=== PATIENT | male | born 1955 | race Caucasian/White ===

== ENCOUNTER 2019-08-08 16:12 | Outpatient (REF) | payer MEDICARE, BC, SELFPAY ==
[2019-08-12 14:38] LABS: IgA 119 mg/dL (85-499); Interpretation SEE COMMENTS; Tissue Transglutaminase IgA <1.2 U/mL (<4.0)
[2019-08-12 14:50] LABS: PSA, Screening 0.4 ng/ml (0-4.5)
== END 2019-08-08 16:32 ==
LOC: NCHCN 16:12
PROVIDERS: PCP Internal Medicine; Visit Provider Internal Medicine
DX: E78.5 Hyperlipidemia, unspecified (principal); K58.9 Irritable bowel syndrome, unspecified; E66.9 Obesity, unspecified; Z12.5 Encounter for screening for malignant neoplasm of prostate
CPT/HCPCS: 82784; 83516; 84153

== ENCOUNTER 2019-10-17 01:41 | Emergency (ER) | payer BC, MEDICARE, SELFPAY ==
[2019-10-17 01:48] VITALS: BP 155/80; PULSE 62; RESP 16; TEMP 36.7; O2SAT 97
--- NOTE | 2019-10-17 01:53 | W.ED.GENAD ---
Discharge Plan Disposition Patient Disposition: HOME Condition: Good Discharge Details Chief Complaint: Urinary Clinical Impression: Right distal ureteral calculus, Right renal mass Primary Care Provider: Tavo Henderson ED Provider: Rufus Mckenna Home Meds and New Rx's Prescriptions: New Hydrocodone/Apap 5/325, 4 Tab [[place] 5/325, 4 Tabs/Btl] 1 tab PO BID-QID PRN (Reason: pain) Qty: 4 RF: 0 Continued simvastatin 10 MG tablet 10 mg PO HS RF: 0 chlorthalidone 25 mg Tablet 25 mg PO DAILY RF: 0 Probiotic 15 billion cell Capsule 15 cap PO BID RF: 0 Discharge Instructions Instructions: Hydrocodone/Acetaminophen (By mouth), Renal Colic (ED) Additional Instructions: You have a 3 mm right distal ureteral stone which should pass on its own. Stay hydrated. Continue ibuprofen. Hydrocodone/acetaminophen for severe pain. Strain your urine so you know when stone has passed. Contact primary care at this morning for follow-up and further evaluation of the right renal mass. Return to ED if you develop fever, vomiting, uncontrolled pain, other concerns or problems. Referrals: Tavo Henderson MD [Primary Care Provider] - Medical Decision Making Patient presenting with what he thinks is kidney stone although he cannot really lateralize his pain. Seems to feel like it may be more on the right than left. Seems uncomfortable but not in distress. Declines further pain meds. IV established by nursing. Fluids started. Will obtain CBC and chemistry as well as urinalysis and sent for CT stone study. Patient laboratory studies are normal. White count is normal. Kidney function normal. Urinalysis completely negative. CT scan shows a 3 mm distal right ureter stone with mild hydronephrosis. Patient also noted to have multiple hepatic cysts and renal cysts which have been present previously. There is a new right renal mass that is suspicious and will need further work-up. Patient reports pain getting worse again. Continues to have no nausea. Will receive [place] 5/325. Will send home with 4 tabs as well. Informed consent signed and State information sheet given. Suspect patient will pass stone without difficulty. Continue ibuprofen. Patient instructed to contact primary care, Dr. Henderson, in the morning to arrange for follow-up and further evaluation of right renal mass. Medical Records Medical records reviewed: Yes I reviewed the patient's medical records. Lab Data Lab results reviewed: Yes I reviewed the patient's lab results. HPI General Mode of arrival: ambulatory. Date/Time Provider Initiated Documentation: 10/17/19 01:51. Limitations to Documentation: no limitations. Information obtained by: patient and RN notes reviewed. HPI Narrative: Patient presents to ED with complaint of lower abdominal/pelvic pain that woke him from sleep. He feels like he needs to have a bowel movement but is unable to. He denies urinary symptoms though he reports this feels like previous kidney stone he had years ago. He does not really have any back pain currently. He noticed some yesterday but cannot describe it. He has no fever. He felt chilled this evening before going to bed. He has no nausea/vomiting. He has had no hematuria. He took ibuprofen prior to coming in and reports that the pain is better though still present. Related Data Home Medications Medication Instructions Recorded Confirmed simvastatin 10 mg PO HS tab-cap 10/24/17 HYDROcodone/APAP 5/325, 4 tab 1 tab PO BID-QID PRN #4 tab 10/17/19 [[place] 5/325, 4 tabs/btl] Probiotic 15 cap PO BID 10/17/19 10/17/19 chlorthalidone 25 mg PO DAILY 10/17/19 10/17/19 Previous Rx's Medication Instructions Recorded HYDROcodone/APAP 5/325, 4 tab 1 tab PO BID-QID PRN #4 tab 10/17/19 [[place] 5/325, 4 tabs/btl] Allergies Allergy/AdvReac Type Severity Reaction Status Date / Time No Known Allergies Allergy Unverified 10/17/19 02:44 General Stated Complaint: Urinary LORRIE: 3 Review of Systems Narrative: As documented in HPI otherwise negative as below. Const: no fever, weakness Resp: no cough, SOB, pleuritic pain CV: no CP, diaphoresis, edema, syncope GI: abdominal pain; no nausea, vomiting, diarrhea Neuro: no headache, numbness, focal weakness, confusion [facility] Medical History GERD (gastroesophageal reflux disease) (Chronic) Hypercholesterolemia (Chronic) Surgical History Repair of inguinal hernia Repair of umbilical hernia Tonsillectomy Social History Smoking/Tobacco Use Status: Never Drug use: Never Do you feel safe at home: Yes Do you feel safe in your relationship?: Yes Exam Narrative Exam Narrative: Vitals: Afebrile. Elevated blood pressure otherwise normal vitals and normal pulse oximetry. Const: WDWN male in NAD. HEENT: NC/AT. Normal facial exam. Eyes: Normal conjunctiva and sclera. Neck: Supple. Trachea midline. Lungs: Normal respiratory effort. GI: Soft. NT/ND. No guarding or rebound. Back: No CVAT. Neuro: A+O x 3. No gross deficits. Skin: Warm and dry. Course Vital Signs Vital signs: Vital Signs Temperature 98.1 F 10/17/19 01:48 Pulse 62 10/17/19 01:48 Respiratory Rate 16 10/17/19 01:48 Blood Pressure 155/80 H 10/17/19 01:48 Pulse Oximetry 97 10/17/19 01:48 Temperature 98.1 F 10/17/19 01:48 Temperature Source Skin 10/17/19 01:48 Pulse 62 10/17/19 01:48 Respiratory Rate 16 10/17/19 01:48 Respiratory Effort 10/17/19 01:48 Blood Pressure 155/80 H 10/17/19 01:48 Blood Pressure Position Sitting 10/17/19 01:48 Pulse Oximetry 97 10/17/19 01:48 Oxygen Delivery Method Room Air 10/17/19 01:48 Oxygen Flow Rate 0 10/17/19 01:48 Pain Level 7 10/17/19 01:48
[2019-10-17] MEDS: Normal Saline 1,000 ML 1000 ML IV (02:06)
[2019-10-17 02:09] LABS: Abs Immature Grans 0.01 k/cumm (0.0-0.09); Absolute Basophil Count 0.03 k/cumm (0.0-0.2); Absolute Eosinophil Count 0.22 k/cumm (0.0-0.7); Absolute Lymphocyte Count 2.44 k/cumm (1.2-3.4); Absolute Monocyte Count 0.64 k/cumm (0.11-0.7); Absolute Neutrophil Count 2.91 k/cumm (1.2-6.7); Basophils % 0.5; Eosinophils % 3.5; HCT 45.9 % (40.0-50.0); HGB 16.2 g/dL (13.5-17.5); Immature Grans % 0.2; Mean Corp. HGB Concentration 35.3 g/dL (32.0-36.0); Mean Corpuscular Hemoglobin 30.7 pg (27.0-33.0); Mean Corpuscular Volume 86.9 fL (80-95); Mean Platelet Volume 9.8 fL (8.0-11.0); Monocytes % 10.2; Neutrophils % 46.6; Platelet Count 248 x1000/uL (130-400); RBC 5.28 m/cumm (4.50-6.00); RBC Distribution Width 12.7 % (11.8-14.1); White Blood Cell Count 6.25 k/cumm (4.4-10.8)
[2019-10-17 02:16] LABS: Anion Gap 7.8 mmol/L (3-11); BUN 17 mg/dL (7-18); CO2 30.2 mmol/L (21.0-32.0); CREATININE 1.04 mg/dL (0.70-1.30); Calcium 9.9 mg/dL (8.5-10.1); Chloride 103 mmol/L (98-107); Glucose 129 mg/dL (74-106); Sodium 141 mmol/L (136-145)
[2019-10-17 02:25] LABS: Bilirubin Negative (Negative); Blood Negative (Negative); Clarity Clear (Clear); Glucose Negative (Negative); Ketones Negative (Negative); Leukocyte Esterase Negative (Negative); Nitrite Negative (Negative); Specific Gravity >= 1.030 (1.005-1.025); Urobilinogen 0.2 EU/dL (Up TO 0.2); pH 5.5 (5-8)
--- NOTE | 2019-10-17 02:32 | DI.CT_ITS ---
EXAM: CT RENAL COLIC WO CLINICAL HISTORY: right abdominal/pelvic pain TECHNIQUE: Imaging Protocol: Axial computed tomography images with coronal and sagittal reformatted images were created and reviewed. CONTRAST MATERIAL: Intravenous: Omnipaque 350 Contrast volume:0 mL contrast route:IV - Oral: No COMPARISON: ABD PELVIS WITH CONTRAST from 02/20/2011 FINDINGS: ABDOMEN: Lung Bases: Normal where visualized. Liver: Normal density. Multiple hepatic cysts. The largest measures 6 centimeters in diameter. Gallbladder and biliary tract: Cholelithiasis. No biliary ductal dilatation. Pancreas: Normal density, no abnormal calcifications or inflammatory process. Spleen: Normal. Kidneys: Normal size, contour and axis. Bilateral nephrolithiasis. There is a 3 millimeter stone at the right ureterovesicular junction causing mild hydronephrosis. There is a 6.5 centimeter mass in t he inferior pole of the right kidney suspicious for renal cell carcinoma. There is a 2.2 centimeter exophytic lesion in the midpole of the left kidney. This may represent a solid mass.This may repre sent a hemorrhagic cyst. Further evaluation is recommended. Adrenal glands: No masses seen. Abdominal Aorta: Abdominal portion non-dilated. Atherosclerosis. PELVIS: Bladder: The bladder is not distended. Bowel: No obstruction or bowel wall thickening. The appendix is normal in size without evidence of ad jacent mesenteric fat stranding or adjacent fluid collection. There is colonic diverticulosis but no evidence of acute diverticulitis. Peritoneal cavity: No ascites, collection or mesenteric inflammatory response. Bones: Within normal limits. Reproductive organs: Within normal limits. IMPRESSION: 1. 3 millimeter calculus at the right ureteral vesicular junction causing mild hydronephrosis. 2. 6.5 centimeter solid mass in the lower pole of the right kidney suspicious for renal cell carcinom a. 3. 2.2 centimeter exophytic hyperdense mass in the midpole of the left kidney. This may represent a hemorrhagic cyst but solid mass cannot be excluded. Further evaluation is recommended. 4. Bilateral nephrolithiasis. DATA REPOSITORY: All CT scans at this facility are submitted to the National Radiology Data Registry (NRDR) Dose Index Registry (DIR) with the [employer] (ACR). RADIATION OPTIMIZATION: All CT scans at this facility use at least one of these dose optimization te chniques: automated exposure control; mA and/or kV adjustment per patient size (includes targeted exa ms where dose is matched to clinical indication); or iterative reconstruction.
--- NOTE | 2019-10-17 02:52 | DI.VRAD_ITS ---
PROCEDURE INFORMATION: Exam: CT Abdomen And Pelvis Without Contrast Exam date and time: 10/17/2019 2:02 AM Age: 64 years old Clinical history: Abdominal pain; Localized; Right; Patient HX: RT sided pain x couple hours, no fever, no nausea/vomiting. TECHNIQUE: Imaging protocol: Computed tomography of the abdomen and pelvis without contrast. Radiation optimization: All CT scans at this facility use at least one of these dose optimization techniques: automated exposure control; mA and/or kV adjustment per patient size (includes targeted exams where dose is matched to clinical indication); or iterative reconstruction. COMPARISON: No relevant prior studies available. FINDINGS: Liver: Hepatic cysts up to 6 cm. Gallbladder and bile ducts: Cholelithiasis. Pancreas: Normal. No ductal dilation. Spleen: Normal. No splenomegaly. Adrenals: Normal. No mass. Kidneys and ureters: Renal cysts up to 3.3 cm. 2.2 cm exophytic lesion of the left kidney that likely indicate hyperdense cyst, recommend followup study. Nonobstructing renal calculi. 3 mm calculus right distal ureter with minimal right hydroureteronephrosis. 6.5 cm right renal mass suspicious for renal cell carcinoma. Stomach and bowel: Colonic diverticulosis. Appendix: No evidence of appendicitis. Intraperitoneal space: Unremarkable. No free air. No significant fluid collection. Vasculature: Unremarkable. No abdominal aortic aneurysm. Lymph nodes: Unremarkable. No enlarged lymph nodes. Bladder: Unremarkable as visualized. Reproductive: Unremarkable as visualized. Bones/joints: Unremarkable. No acute fracture. Soft tissues: Unremarkable. IMPRESSION: 1. 3 mm calculus right distal ureter with minimal right hydroureteronephrosis. 2. 6.5 cm right renal mass suspicious for renal cell carcinoma. Dictated and Authenticated by: Rafael Perez MD. Ordering:FOSTER Hooper MD
[2019-10-17 02:57] LABS: ALT 47 U/L (16-63); AST 30 U/L (15-37); Albumin 4.5 g/dL (3.4-5.0); Alkaline Phosphatase 88 U/L (46-116); Bilirubin, Direct 0.09 mg/dL (0.00-0.20); Bilirubin, Total 0.5 mg/dL (0.2-1.0); Lipase 172 U/L (73-393); Total Protein 8.2 g/dL (6.4-8.2)
[2019-10-17] MEDS: HYDROcodone 5/Acetaminophen 325 TAB PO (03:12)
--- NOTE | 2019-10-17 03:16 | NUR.NOTE ---
Nursing Note:Vicodin home pack to patient and spouse.
[2019-10-17 03:28] VITALS: BP 146/88; PULSE 74; RESP 16; O2SAT 100
== END 2019-10-17 03:45 | disposition home or self-care (01) ==
PROVIDERS: Emergency Provider Emergency Medicine; PCP Internal Medicine
DX: N13.2 Hydronephrosis with renal and ureteral calculous obstruction (principal); R93.421 Abnormal radiologic findings on diagnostic imaging of right kidney; R93.422 Abnormal radiologic findings on diagnostic imaging of left kidney; Z87.442 Personal history of urinary calculi
CPT/HCPCS: 36415; 80048; 80076; 83690; 96360; 99284; 74176; 81003; 85025

== ENCOUNTER 2019-10-17 15:56 | Outpatient (REF) | payer BC, MEDICARE, SELFPAY ==
[2019-10-25 22:50] LABS: Source: Passed Stone
== END 2019-10-17 16:16 ==
LOC: LBN 15:56
PROVIDERS: PCP Internal Medicine; Visit Provider Internal Medicine
DX: N23 Unspecified renal colic (principal)
CPT/HCPCS: 82365

== ENCOUNTER 2019-11-14 16:05 | Outpatient (REF) | payer BC, MEDICARE, SELFPAY ==
[2019-11-14 21:54] LABS: Anion Gap 10.1 mmol/L (3-11); BUN 18 mg/dL (7-18); CO2 29.9 mmol/L (21.0-32.0); CREATININE 0.99 mg/dL (0.70-1.30); Calcium 9.2 mg/dL (8.5-10.1); Chloride 102 mmol/L (98-107); Glucose 127 mg/dL (74-106); Potassium 3.5 mmol/L (3.5-5.1); Sodium 142 mmol/L (136-145)
== END 2019-11-14 16:25 ==
LOC: NCHCN 16:05
PROVIDERS: PCP Internal Medicine; Visit Provider Internal Medicine
DX: I10 Essential (primary) hypertension (principal)
CPT/HCPCS: 80048

== ENCOUNTER 2021-05-27 14:46 | Outpatient (REF) | payer BC, MEDICARE, SELFPAY ==
[2021-05-27 20:59] LABS: HCT 41.8 % (40.0-50.0); HGB 14.3 g/dL (13.5-17.5); MCH 30.9 pg (27.0-33.0); MCHC 34.2 % (32.0-36.0); MCV 90.3 fL (80-95); MPV 10.7 fL (8.0-11.0); Platelet Count 226 10^3/uL (130-400); RBC 4.63 10^6/uL (4.36-5.78); RDW 12.2 % (11.8-14.1); RDW-SD 40.3 fL; WBC 6.25 10^3/uL (4.4-10.8)
[2021-05-27 21:28] LABS: ALT 32 U/L (16-63); AST 18 U/L (15-37); Albumin 4.4 g/dL (3.4-5.0); Alkaline Phosphatase 60 U/L (46-116); Anion Gap 9.6 mmol/L (3-11); BUN 13 mg/dL (7-18); Bilirubin, Total 0.7 mg/dL (0.2-1.0); CO2 28.4 mmol/L (21.0-32.0); CREATININE 1.1 mg/dL (0.70-1.30); Calcium 9.5 mg/dL (8.5-10.1); Calculated LDL 90 mg/dL (<100); Chloride 105 mmol/L (98-107); Cholesterol 153 mg/dL (<200); Glucose 108 mg/dL (74-106); HDL Cholesterol 48 mg/dL (40-60); Potassium 4.7 mmol/L (3.5-5.1); Sodium 143 mmol/L (136-145); Triglyceride 76 mg/dL (<150)
== END 2021-05-27 14:47 | disposition home or self-care (01) ==
LOC: NCHCN 14:46
PROVIDERS: PCP Internal Medicine; Visit Provider Internal Medicine
DX: E78.5 Hyperlipidemia, unspecified (principal); I10 Essential (primary) hypertension; D30.00 Benign neoplasm of unspecified kidney
CPT/HCPCS: 80053; 80061; 85027

== ENCOUNTER 2022-12-01 13:15 | Outpatient (REF) | payer OTHER, MEDICARE, SELFPAY ==
[2022-12-01 14:44] LABS: Anion Gap 8.5 mmol/L (3-11); BUN 19 mg/dL (7-18); CO2 28.5 mmol/L (21.0-32.0); CREATININE 1.1 mg/dL (0.70-1.30); Calcium 9.4 mg/dL (8.5-10.1); Chloride 103 mmol/L (98-107); Estimated GFR 73.12 (mL/min/1.73m2); Glucose 101 mg/dL (74-106); Potassium 4.4 mmol/L (3.5-5.1); Sodium 140 mmol/L (136-145)
[2022-12-01 22:38] LABS: PSA, Screening 0.6 ng/mL (<=4.5)
== END 2022-12-01 13:16 | disposition home or self-care (01) ==
LOC: NCHCN 13:15
PROVIDERS: PCP Internal Medicine; Visit Provider Internal Medicine
DX: I10 Essential (primary) hypertension (principal); E78.5 Hyperlipidemia, unspecified; R33.9 Retention of urine, unspecified; N28.1 Cyst of kidney, acquired; F32.9 Major depressive disorder, single episode, unspecified; Z00.00 Encounter for general adult medical examination without abnormal findings; Z12.5 Encounter for screening for malignant neoplasm of prostate
CPT/HCPCS: 80048; 84153

== ENCOUNTER 2023-01-10 17:57 | Outpatient (REF) | payer OTHER, MEDICARE, SELFPAY | END 2023-01-10 17:58 | disposition home or self-care (01) | LOC: LBN 17:57 | PROVIDERS: PCP Internal Medicine; Visit Provider Nurse Practitioner Adult Health | DX: R30.0 Dysuria (principal) | CPT/HCPCS: 87086 ==

== ENCOUNTER 2023-08-31 15:00 | Outpatient (REF) | payer OTHER, MEDICARE, SELFPAY ==
--- NOTE | 2023-08-31 11:30 | SKI_PTH ---
PATIENT: Bandar Waytt LOC: [facility]#:[id number] AGE/SX: 68/M ROOM: RE08/31/[address]: Tavo Henderson : 1955 BED: DIS: 08/31/2023 SPEC #: [id number] RECD: 08/31/23 17:30 STATUS: SERGEI MANRIQUEZ #: [id number] JASMIN: 08/31/23 11:[address]: Tavo Henderson DEPT: Surgical Specimen RECD BY: Malia Wilson Tissues: 1 - SKIN BIOPSY(SHAVE/PUNCH) Procedures: IMMUNOPEROXIDASE STAIN SKIN LEVEL 4 Comments: [id number]
== END 2023-08-31 15:01 | disposition home or self-care (01) ==
LOC: NCHCN 15:00
PROVIDERS: PCP Internal Medicine; Visit Provider Internal Medicine
DX: L98.9 Disorder of the skin and subcutaneous tissue, unspecified (principal)
CPT/HCPCS: 88305; 88361

== ENCOUNTER 2023-12-04 15:48 | Outpatient (REF) | payer OTHER, MEDICARE, SELFPAY ==
[2023-12-04 16:05] LABS: HCT 39.7 % (40.0-50.0); HGB 13.4 g/dL (13.5-17.5); MCHC 33.8 % (32.0-36.0); MCV 89 fL (80-95); MPV 9.9 fL (8.0-11.0); Platelet Count 223 10^3/uL (130-400); RBC 4.46 10^6/uL (4.36-5.78); RDW 12.2 % (11.8-14.1); RDW-SD 40.1 fL; WBC 5.09 10^3/uL (4.4-10.8)
[2023-12-04 16:37] LABS: ALT 36 U/L (16-63); AST 22 U/L (15-37); Alkaline Phosphatase 69 U/L (46-116); Anion Gap 5.8 mmol/L (3-11); BUN 15 mg/dL (7-18); Bilirubin, Total 0.6 mg/dL (0.2-1.0); CO2 30.2 mmol/L (21.0-32.0); CREATININE 1.1 mg/dL (0.70-1.30); Calcium 9.2 mg/dL (8.5-10.1); Chloride 104 mmol/L (98-107); Estimated GFR 72.67 (mL/min/1.73m2); Glucose 103 mg/dL (74-106); Potassium 4.5 mmol/L (3.5-5.1); Sodium 140 mmol/L (136-145); Total Protein 7.1 g/dL (6.4-8.2)
== END 2023-12-04 15:49 | disposition home or self-care (01) ==
LOC: NCHCN 15:48
PROVIDERS: PCP Internal Medicine; Visit Provider Family Medicine
DX: I10 Essential (primary) hypertension (principal)
CPT/HCPCS: 80053; 85027

== ENCOUNTER 2024-04-12 07:05 | Day surgery (SDC) | payer OTHER, MEDICARE, SELFPAY ==
[2024-04-12 07:22] VITALS: BP 140/75; PULSE 65; RESP 16; TEMP 36.4; O2SAT 96
--- NOTE | 2024-04-12 07:34 | ANES.PREOP_ITS ---
General Info Date of Service Date Performed: 04/12/24 Height: 5 ft 9 in Weight: 99 kg Body Mass Index (BMI): 32.2 Surgical Procedure: Operation Date: 04/12/24 08:20 Proposed Procedure Side Surgeon joya Skinner, DO Meds Allergies and Home Medications Allergies Allergy/AdvReac Type Severity Reaction Status Date / Time No Known Allergies Allergy Unverified 04/12/24 07:19 Home Medication Medication Instructions Recorded HYDROcodone/APAP 5/325, 4 tab 1 tab PO BID-QID PRN pain #4 tabs 10/17/19 [[place] 5/325, 4 tabs/btl] Lactobacillus acidophilus and 15 cap PO BID 10/17/19 rhamnosus 15 billion cell capsule (Probiotic) chlorthalidone 25 mg tablet 25 mg PO DAILY 10/17/19 lisinopril 5 mg tablet 5 mg PO DAILY 02/05/24 sertraline 50 mg tablet 50 mg PO DAILY 02/05/24 sildenafil 100 mg tablet (Viagra) 100 mg PO DAILY PRN 02/05/24 simvastatin 10 mg tablet 20 mg PO HS 02/05/24 tamsulosin 0.4 mg capsule 0.4 mg PO DAILY 02/05/24 bisacodyl 5 mg tablet,delayed 5 mg PO ONCE #4 tabs 03/14/24 release (Dulcolax (bisacodyl)) polyethylene glycol 3350 17 17 g PO ONCE #238 grams 03/14/24 gram/dose oral powder Current Visit Medications: Current Medications Generic Name Dose Route Start Last Admin Trade Name Freq PRN Reason Stop Dose Admin Hyoscyamine Sulfate 0.125 mg 04/12/24 06:19 Hyoscyamine 0.125 Mg Sl/Oral/Chew SL 05/12/24 06:18 DIRECTED PRN Ringer's Solution 1,000 mls @ 80 mls/hr 04/12/24 06:00 IV 05/11/24 23:59 INFUSION [facility] IV Miscellaneous Supplies 1 each 04/12/24 06:00 Iv Access IV 05/11/24 23:59 DIRECTED [facility] Ondansetron HCl 4 mg 04/12/24 06:19 Ondansetron 4 Mg/2 Ml Vial IVP 05/12/24 06:18 Q4H PRN PRN Nausea / Vomiting Sodium Chloride 0 ml 04/12/24 06:00 Normal Saline Flush 10 Ml Syr IV 05/11/24 23:59 PRN PRN Sodium Chloride 0 ml 04/12/24 06:00 Normal Saline 10 Ml Vial IJ 05/11/24 23:59 DIRECTED PRN Sterile Water 0 ml 04/12/24 06:00 Water,Injection,Sterile 10 Ml Vial IJ 05/11/24 23:59 DIRECTED PRN PFSH Active Problems Active Problems: Problem Status Onset Code Hypercholesterolemia E78.00 GERD (gastroesophageal reflux disease) K21.9 Medical History Medical History Obesity Erectile dysfunction Osteoarthritis Benign prostatic hyperplasia Irritable bowel syndrome Chronic depression Hyperlipidemia Essential hypertension 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, partial nephrectomy Surgical History Surgical History History of colonoscopy H/O lithotripsy stone removal, ureteral stent 02/03/23 History of ureteroscopy Hx of cystoscopy cystoscopy, ureteroscopy, stone extraction and stent placement right kidney 01/18/2023 H/O partial nephrectomy uncomplicated robotic-assisted laparoscopic right partial nephrectomy for a 7 cm lower pole renal mass H/O hernia repair bilateral hernia repair age 6 Tonsillectomy Repair of umbilical hernia Repair of inguinal hernia Tobacco Smoking/Tobacco Use Status: Never Alcohol Alcohol Intake: current Alcohol intake frequency: a few times a week Substance Use Substance use: Never Substance use type: does not use Vital Signs and Lab Results Vital Signs Most Recent Vital Signs in EMR: Most Recent Vital Signs Temp Pulse Resp BP Pulse Ox 36.4 C L 65 16 140/75 96 04/12/24 07:22 04/12/24 07:22 04/12/24 07:22 04/12/24 07:22 04/12/24 07:22 Lab Results Blood Type / Crossmatch: No Data to Display Complete Blood Count: No Data to Display Complete Metabolic Panel: No Data to Display Liver Function Panel: No Data to Display Coagulation Panel: No Data to Display Cardiac Panel: No Data to Display Arterial Blood Gas: No Data to Display Venous Blood Gas: No Data to Display Pancreas Panel: No Data to Display Thyroid Panel: No Data to Display Infectious Disease: No Data to Display Blood Cultures: No Data to Display Toxicology Panel: No Data to Display Anesthesia Assessment and Plan Anesthesia History Personal History: No History of Anesthesia Complications Family History: No Family History of Anesthesia Complications Exercise Tolerance Exercise Tolerance: Metabolic Equivalents>4 Pertinent Negatives Pertinent Negatives: No Symptoms of GERD, No Major Cardiovascular Symptoms or Complaints, No Major Pulmonary Symptoms or Complaints and No History of CVA/TIA Cardiac & Pulmonary Exam Cardiac Exam: Normal S1/S2 Heart Sounds Pulmonary Exam: Clear Bilateral Breath Sounds Implantable Cardiac Device Does patient have a Pacemaker or an ICD?: No Airway Exam Known Difficult Airway: No Mallampati Class: 2 Mouth Opening: Normal (> 3cm) Thyromental Distance: Greater than 3 cm Neck Range of Motion: Full ROM Neck Circumference: Normal Teeth Condition: Normal Dentition and Removable Dentures/Plates Upper (upper partial) ASA Classification ASA Score: ASA 2 Emergency Case?: No NPO Status NPO Status: NPO Clears >2 hours, Solids >8 hours Anesthesia Plan Resuscitation Status: Full Code Anesthesia Technique: General Anesthesia Airway Planned: Natural Airway Monitors Used: Standard Monitors Preoperative Comments:: 68 y/o male with history of GERD, obesity, depression and HTN presents for colonoscopy screening pre-op. His last screening was in 2013, which was unremarkable.
[2024-04-12] MEDS: Lactated Ringers 1,000 ML 80 ML IV (07:40)
[2024-04-12 08:18] VITALS: BMI 32.2
--- NOTE | 2024-04-12 08:40 | BOWEL_PTH ---
PATIENT: Bandar Wyatt LOC: [facility] U#:[id number] AGE/SX: 68/M ROOM: RE04/12/[address]: Karin Skinner : 1955 BED: DIS: 04/12/2024 SPEC #: [id number] RECD: 04/12/24 11:59 STATUS: SERGEI REEarnest #: [id number] JASMIN: 04/12/24 08:[address]: Karin Skinner DEPT: Surgical Specimen RECD BY: Malia Wilson ENTERED: 04/12/24 12:03 SP TYPE: Bowel OTHR DR: Ronak Anderson Tissues: 1 - BIOPSY BOWEL 2 - BIOPSY BOWEL 3 - BIOPSY BOWEL Procedures: GROSS AND MICRO LEVEL 4 Comments: [id number]
[2024-04-12 09:05] VITALS: BP 95/62; PULSE 70; RESP 14; TEMP 36.5; O2SAT 94
--- NOTE | 2024-04-12 09:11 | COLE_ITS ---
Date of service: 04/12/24 Time of Service: 09:11 Colonoscopy Report Date of procedure: 04/12/24 Pre-op diagnosis general: CRC Post-op diagnosis procedure note: other (pandiverticula/lg colon polyps) Surgeon: Karin Skinner Anesthesia Type: General:No Airway Estimated blood loss (mL): 1 Pathology: other Complications: None Disposition: same day Prep: Miralax/Dulcolax Retraction Time: 21 Procedure Description: After informed consent was obtained the patient was taken to the procedure room and placed in a left decubitous position. Monitors were applied and a time out was done. The patients name, date of , procedure, allergies to medications and metal in their body was reviewed. The patient was then sedated. Once sedated and comfortable a rectal exam was done. External exam was normal. Internal exam revealed a normal sphincter tone and no palpable masses. The prostate [no palpable masses]. The scope was then introduced and retrofelexed. No internal hemorrhoids internal hemorrhoids were identified. The scope was then advanced to the cecum difficulty. The TI and appendiceal orifice were identified.. The scope was then slowly retracted over 21 minutes back into the rectum. he has alva diverticula that carry all the way over to the cecum. He has numerous large diverticula in the sigmoid colon. There is no signs of active bleeding or infection. He has a large 2 cm polyp on a very long stalk at 50 cm. The polyp was removed with a hot snare. All specimen is retrieved and no bleeding is noted. The end of the stock is then taken in a separate jar. A clip was placed across the stalk. The scope was removed and the patient was woken up and taken back to Same day surgery in stable condition. The patient tolerated the procedure well and there were no immediate complications. Follow up: The patient should follow up in 3 years unless they develop changes in bowel habits or other new gastrointestinal complaints. [place] Bowel Prep [place] Bowel Prep Right Colon: 3 Left Colon: 3 Transverse Colon: 3 Total Score: 9
--- NOTE | 2024-04-12 09:31 | W.ANESPOSTOP ---
Postoperative Evaluation Date, Time and Location Date Performed: 04/12/24 Time Performed: 09:32 Patient Location: Day Surgery Unit Vital Signs Most Recent Imported Vital Signs: Most Recent Vital Signs Temp Pulse Resp BP Pulse Ox 36.5 C 70 14 95/62 L 94 04/12/24 09:05 04/12/24 09:05 04/12/24 09:05 04/12/24 09:05 04/12/24 09:05 Pain Score Most Recent Pain Score: Most Recent Pain Score Pain Level 0 04/12/24 09:05 Assessment Mental Status: Awake (Alert & Oriented to Patient Baseline) Airway and Respiratory Function: Patent airway with normal (patient baseline) respiratory exam Cardiovascular Function: Hemodynamically Stable Hydration Status: Adequately Hydrated Nausea & Vomiting: No Nausea or Vomiting Pain: Pt. Denies Any Pain Peripheral Nerve Block: Patient did not receive a nerve block
[2024-04-12 09:33] VITALS: BP 129/58; PULSE 60; RESP 16; TEMP 36.5; O2SAT 97
--- NOTE | 2024-04-12 09:43 | W.PM.DSUDISC ---
Date of service: 04/12/24 Time of Service: 09:43 Discharge Plan Disposition Patient Disposition: Home Condition: Good Discharge Details Reason For Visit: Colon scope Attending Provider: Karin Skinner Primary Care Provider: Ronak Anderson Home Meds and New Rx's Prescriptions: Continued lisinopril 5 mg tablet 5 mg PO DAILY sertraline 50 mg tablet 50 mg PO DAILY simvastatin 10 mg tablet 20 mg PO HS tamsulosin 0.4 mg capsule 0.4 mg PO DAILY sildenafil [Viagra] 100 mg tablet 100 mg PO DAILY PRN Rx Instructions: 0.5 -1 tablet by mouth as needed administer 30 minutes to 4 hours before activity chlorthalidone 25 mg Tablet 25 mg PO DAILY Probiotic 15 billion cell Capsule 15 cap PO BID Hydrocodone/Apap 5/325, 4 Tab [[place] 5/325, 4 Tabs/Btl] 1 tab PO BID-QID PRN (Reason: pain) Qty: 4 0RF Discontinued bisacodyl [Dulcolax (bisacodyl)] 5 mg tablet,delayed release (DR/EC) 5 mg PO ONCE Qty: 4 0RF Rx Instructions: Take per colonoscopy instructions provided by ordering providers office polyethylene glycol 3350 17 gram/dose powder 17 g PO ONCE Qty: 238 0RF Rx Instructions: Take per colonoscopy instructions provided by ordering providers office Discharge Instructions Additional Instructions: DSU Colonoscopy Post-Op Instructions Instructions for Everyone who is given Anesthesia: For your safety, please do the following for the next twenty-four (24) hours: *Do Not operate a motor vehicle (car, truck, motorcycle, etc.) *Do Not drink alcoholic beverages or use any recreational drugs for the first 24 hours or while taking pain medications. The medications in your body may have a reaction that can be dangerous. *Do Not make any important decisions or sign any important papers. Findings: -Severe diverticula make sure you are moving your bowels on a regular basis and not straining. See handout -Large colon polyp. My office will send you a letter in 3 weeks time with the results of the pathology and when we want you to repeat the colonoscopy Follow up: Most likely 3 years time 1. No lifting over 20 pounds or strenuous activity for the first 24 hours after your procedure. After 24 hours there are no restrictions on your activity but you may feel fatigued for a few days. -No aspirin/NSAIDs for 72 hours 2. After you arrive home you may have a light meal and return to your normal diet as you can tolerate it without feeling sick to your stomach. 3. You may have a bloated, gaseous feeling in your belly (abdomen) after a colonoscopy. Passing gas and belching will help. Walking or lying down on your left side with your knees flexed may relieve the discomfort. Call the office at [phone] (Office) or [phone] (Hospital) right away if you notice any of the following: a.Vomiting of blood or ?coffee ground stools?. b.Rectal bleeding 1Tbsp, blood clots or continuous bleeding. c.Severe belly (abdominal) pain. d.A hard distended belly (abdomen) and an inability to pass gas. 4. Please don?t expect to have a normal BM (bowel movement) for 2-3 days after your procedure. 5. If there are questions regarding the findings of your procedure, please contact your doctor 6. If you are unable to contact your doctor with a problem, contact the hospital at [phone]. 7. Continue all your regular medications unless directed otherwise. I understand the above instructions and have no questions. Signature of Patient or Adult Escort Name of Responsible Adult Escort Signature of Nurse Date/Time Activity:: See above Diet:: See above Discharge Orders Discharge Orders: Discharge Order (Routine); Ordered 04/12/24 Ordered By: Karin Skinner DS: Diagnosis Discharge Diagnosis (1) Pancolonic diverticulosis: Status: Acute (2) Villous adenoma of colon: Status: Acute Asessment and Plan: The patient is seen and examined after their colonoscopy.? The patient has been able to pass gas.? They are not having abdominal pain.? They have been able to tolerate liquids and a snack.? They do not have any nausea or vomiting.? They are not having any chest pain or shortness of breath.??? They are not having any rectal bleeding. Their vital signs have been stable-see nursing notes. We discussed findings during their colonoscopy, and any biopsies that were done/polyps that were removed. The patient will be sent a letter with any biopsy results, and when to repeat the colonoscopy.-see discharge instructions. Patient was given explicit instructions to follow-up regarding colonoscopy-refer to discharge instructions.? We reviewed resumption of medications. Patient verbalized understanding and discharged in stable and satisfactory condition- See nursing notes.
--- NOTE | 2024-04-12 09:53 | W.COLOREPORT ---
Date of service: 04/12/24 Time of Service: 14:46 Colonoscopy Report Date of procedure: 05/01/24 Pre-op diagnosis general: Adenomatous polyps Post-op diagnosis procedure note: other (Gross diverticula and polyps) Surgeon: Karin Skinner Anesthesia Type: General:No Airway Estimated blood loss (mL): 1 Pathology: other Complications: None Disposition: same day Prep: Miralax/Dulcolax Retraction Time: 25 Procedure Description: After informed consent was obtained the patient was taken to the procedure room and placed in a left decubitous position. Monitors were applied and a time out was done. The patients name, date of , procedure, allergies to medications and metal in their body was reviewed. The patient was then sedated. Once sedated and comfortable a rectal exam was done. External exam was normal. Internal exam revealed a normal sphincter tone and no palpable masses. The prostate without palpable masses. The scope was then introduced and retrofelexed. No internal hemorrhoids were identified. The scope was then advanced to the cecum without difficulty. The TI and appendiceal orifice were identified. The scope was then slowly retracted over 25 minutes back into the rectum. He had a small flat 5 mm polyp on the ileocecal valve. This is removed with cold biting forcep. He has a 2 cm pedunculated polyp on a long stalk at 50 cm. This is removed with a hot snare. A separate section of the stalk is taken. This is placed in a second shower. A clip is placed over the stalk. He does have diverticular disease that does extend all the way over to the cecum. There are large and numerous diverticula. There is no sign of active bleeding. Mucosa is pink and healthy. The scope was removed and the patient was woken up and taken back to Same day surgery in stable condition. The patient tolerated the procedure well and there were no immediate complications. Follow up: The patient should follow up in3 years unless they develop changes in bowel habits or other new gastrointestinal complaints. [place] Bowel Prep [place] Bowel Prep Right Colon: 3 Left Colon: 3 Transverse Colon: 3 Total Score: 9
--- NOTE | 2024-04-12 09:56 | W.PM.DSUDISC ---
Date of service: 04/12/24 Time of Service: 09:57 Discharge Plan Disposition Patient Disposition: Home Condition: Good Discharge Details Reason For Visit: Colon scope Attending Provider: Karin Skinner Primary Care Provider: Ronak Anderson Home Meds and New Rx's Prescriptions: Continued lisinopril 5 mg tablet 5 mg PO DAILY sertraline 50 mg tablet 50 mg PO DAILY simvastatin 10 mg tablet 20 mg PO HS tamsulosin 0.4 mg capsule 0.4 mg PO DAILY sildenafil [Viagra] 100 mg tablet 100 mg PO DAILY PRN Rx Instructions: 0.5 -1 tablet by mouth as needed administer 30 minutes to 4 hours before activity chlorthalidone 25 mg Tablet 25 mg PO DAILY Probiotic 15 billion cell Capsule 15 cap PO BID Hydrocodone/Apap 5/325, 4 Tab [[place] 5/325, 4 Tabs/Btl] 1 tab PO BID-QID PRN (Reason: pain) Qty: 4 0RF Discontinued bisacodyl [Dulcolax (bisacodyl)] 5 mg tablet,delayed release (DR/EC) 5 mg PO ONCE Qty: 4 0RF Rx Instructions: Take per colonoscopy instructions provided by ordering providers office polyethylene glycol 3350 17 gram/dose powder 17 g PO ONCE Qty: 238 0RF Rx Instructions: Take per colonoscopy instructions provided by ordering providers office Discharge Instructions Additional Instructions: DSU Colonoscopy Post-Op Instructions Instructions for Everyone who is given Anesthesia: For your safety, please do the following for the next twenty-four (24) hours: *Do Not operate a motor vehicle (car, truck, motorcycle, etc.) *Do Not drink alcoholic beverages or use any recreational drugs for the first 24 hours or while taking pain medications. The medications in your body may have a reaction that can be dangerous. *Do Not make any important decisions or sign any important papers. Findings: -Severe diverticula make sure you are moving your bowels on a regular basis and not straining. See handout -Large colon polyp. My office will send you a letter in 3 weeks time with the results of the pathology and when we want you to repeat the colonoscopy Follow up: Most likely 3 years time 1. No lifting over 20 pounds or strenuous activity for the first 24 hours after your procedure. After 24 hours there are no restrictions on your activity but you may feel fatigued for a few days. -No aspirin/NSAIDs for 72 hours 2. After you arrive home you may have a light meal and return to your normal diet as you can tolerate it without feeling sick to your stomach. 3. You may have a bloated, gaseous feeling in your belly (abdomen) after a colonoscopy. Passing gas and belching will help. Walking or lying down on your left side with your knees flexed may relieve the discomfort. Call the office at [phone] (Office) or [phone] (Hospital) right away if you notice any of the following: a.Vomiting of blood or ?coffee ground stools?. b.Rectal bleeding 1Tbsp, blood clots or continuous bleeding. c.Severe belly (abdominal) pain. d.A hard distended belly (abdomen) and an inability to pass gas. 4. Please don?t expect to have a normal BM (bowel movement) for 2-3 days after your procedure. 5. If there are questions regarding the findings of your procedure, please contact your doctor 6. If you are unable to contact your doctor with a problem, contact the hospital at [phone]. 7. Continue all your regular medications unless directed otherwise. I understand the above instructions and have no questions. Signature of Patient or Adult Escort Name of Responsible Adult Escort Signature of Nurse Date/Time Stand Alone Forms: Anesthesia Discharge Inst., Veto Rick (DSU) Activity:: See above Diet:: See above Discharge Orders Discharge Orders: Discharge Order (Routine); Ordered 04/12/24 Ordered By: Karin Skinner DS: Diagnosis Discharge Diagnosis (1) Pancolonic diverticulosis: Status: Acute (2) Villous adenoma of colon: Status: Acute
== END 2024-04-12 10:17 | disposition home or self-care (01) ==
PROVIDERS: PCP Family Medicine; Visit Provider Surgery
PROC: 0DJD8ZZ Inspection of Lower Intestinal Tract, Via Natural or Artificial Opening Endoscopic (ICD-10-PCS; CPT 45378; principal; 2024-04-12 08:15)
DX: K57.30 Diverticulosis of large intestine without perforation or abscess without bleeding (principal); D37.4 Neoplasm of uncertain behavior of colon; Z12.11 Encounter for screening for malignant neoplasm of colon; I10 Essential (primary) hypertension; K21.9 Gastro-esophageal reflux disease without esophagitis
CPT/HCPCS: 45380; 45385; 88305; J2704

== ENCOUNTER 2024-12-04 09:59 | Outpatient (REF) | payer OTHER, MEDICARE, SELFPAY ==
[2024-12-04 14:50] LABS: HCT 43.9 % (40.0-50.0); HGB 14.7 g/dL (13.5-17.5); MCH 30.1 pg (27.0-33.0); MCHC 33.5 % (32.0-36.0); MCV 90 fL (80-95); MPV 10.1 fL (8.0-11.0); Platelet Count 230 10^3/uL (130-400); RBC 4.89 10^6/uL (4.36-5.78); RDW 12.7 % (11.8-14.1); RDW-SD 41.8 fL; WBC 5.23 10^3/uL (4.4-10.8)
[2024-12-04 15:13] LABS: ALT 31 U/L (16-63); AST 24 U/L (15-37); Albumin 4.3 g/dL (3.4-5.0); Alkaline Phosphatase 85 U/L (46-116); Anion Gap 8.7 mmol/L (3-11); BUN 21 mg/dL (7-18); Bilirubin, Total 0.67 mg/dL (0.2-1.0); CO2 29.3 mmol/L (21.0-32.0); CREATININE 1.2 mg/dL (0.70-1.30); Calcium 9.7 mg/dL (8.5-10.1); Calculated LDL 183 mg/dL (<100); Chloride 107 mmol/L (98-107); Cholesterol 259 mg/dL (<200); Estimated GFR 65.06 (mL/min/1.73m2); Glucose 108 mg/dL (74-106); HDL Cholesterol 50 mg/dL (40-60); Potassium 5.5 mmol/L (3.5-5.1); Sodium 145 mmol/L (136-145); Total Protein 7.5 g/dL (6.4-8.2); Triglyceride 130 mg/dL (<150)
== END 2024-12-04 10:00 | disposition home or self-care (01) ==
LOC: NCHCN 09:59
PROVIDERS: PCP Family Medicine; Visit Provider Family Medicine
DX: E78.5 Hyperlipidemia, unspecified (principal); Z00.00 Encounter for general adult medical examination without abnormal findings
CPT/HCPCS: 80053; 80061; 85027

== ENCOUNTER 2025-04-25 06:54 | Day surgery (SDC) | payer OTHER, MEDICARE, SELFPAY ==
--- NOTE | 2025-04-24 16:08 | PDOC.DSDIS_ITS ---
Date of service: 04/25/25 Discharge Plan Disposition Patient Disposition: Home Condition: Good Discharge Details Reason For Visit: Screening colonoscopy Attending Provider: Jamey Loo Primary Care Provider: Ronak Anderson Home Meds and New Rx's Prescriptions: Continued lisinopril 5 mg tablet 5 mg PO DAILY sertraline 50 mg tablet 50 mg PO DAILY simvastatin 10 mg tablet 20 mg PO HS tamsulosin 0.4 mg capsule 0.4 mg PO DAILY sildenafil [Viagra] 100 mg tablet 100 mg PO DAILY PRN Rx Instructions: 0.5 -1 tablet by mouth as needed administer 30 minutes to 4 hours before activity chlorthalidone 25 mg Tablet 25 mg PO DAILY Probiotic 15 billion cell Capsule 15 cap PO BID Hydrocodone/Apap 5/325, 4 Tab [[place] 5/325, 4 Tabs/Btl] 1 tab PO BID-QID PRN (Reason: pain) Qty: 4 0RF Discontinued bisacodyl [Dulcolax (bisacodyl)] 5 mg tablet,delayed release (DR/EC) 5 mg PO ONCE Qty: 4 0RF Rx Instructions: Take per colonoscopy instructions provided by ordering providers office polyethylene glycol 3350 17 gram/dose powder 17 g PO ONCE Qty: 238 0RF Rx Instructions: Take per colonoscopy instructions provided by ordering providers office Discharge Instructions Instructions: Diverticulosis Additional Instructions: Bandar, was nice meeting you today, I hope you feel well after the procedure. Things went very smoothly. I do not see any signs of any recurrence in the area where your previous polyp was removed. Nor did I find any other polyps today. As noted on your previous colonoscopies, you do have extensive diverticulosis. There is also a little bit of inflammation in the sigmoid segment, which is extremely common. I will attach some basic information here about typical approaches to diverticular management, but otherwise, with regards to your previous polyp, this is a great colonoscopy. Because of the nature of the polyp that was removed last year, I recommend a 3-year interval for your next colonoscopy. If anything changes in the meantime, or if you have any questions, please let us know. 1. If tolerated, consume a soft, low fiber diet for 1-2 days. 2. Do not drive, drink alcohol, operate machinery, make critical decisions, or do activities that require coordination or balance for 24 hours. 3. Because air was put into your colon during the procedure, expelling air from your rectum (passing gas or farting) is normal. 4. You may not have a bowel movement for 1-3 days because of the colonoscopy prep. This is normal. 5. Go directly to the emergency room if you notice any of the following: Develop chills (warm to touch), or if you have a thermometer and your temperature is above 101 Difficulty breathing or difficultly swallowing Persistent vomiting Severe abdominal pain, other than gas cramps Severe chest pain Black, tarry stools Any bleeding ? exceeding one tablespoon 6. Call your physician if the site where your intravenous was started becomes red, swollen, painful, and warm to touch. 7. Your physician has reviewed your pre-procedure medications. Please continue to take those medications as previously ordered. You will be given specific information/education regarding any changes to your medications before leaving. Stand Alone Forms: Anesthesia Discharge Inst., Colonoscopy Post Instructions, Veto Rick (DSU) Activity:: Activity as Tolerated Diet:: As Tolerated Discharge Orders Discharge Orders: Discharge Order (Routine); Ordered 04/24/25 Ordered By: Jamey Loo DS: Diagnosis Discharge Diagnosis (1) Encounter for screening colonoscopy: Status: Acute Asessment and Plan: Diverticulosis in colon otherwise negative repeat screening colonoscopy today. Follow-up in 3 years based on previous pathology
--- NOTE | 2025-04-24 16:10 | W.COLOREPORT ---
Date of service: 04/25/25 Time of Service: 08:53 Colonoscopy Report Date of procedure: 04/25/25 Pre-op diagnosis general: Screening colonoscopy Post-op diagnosis procedure note: other (Diverticulosis; otherwise negative colonoscopy) Procedure: Colonoscopy Surgeon: Jamey Loo Anesthesia Type: General:No Airway Estimated blood loss (mL): 0 Pathology: none sent Complications: None Disposition: same day Indications: Bandar is a 69-year-old male with a history of tubulovillous adenoma needs his next screening colonoscopy Prep: Miralax/Dulcolax Procedure Start Time: 08:27 Procedure End Time: 08:41 Retraction Time: 9 Findings: Pandiverticulosis, with mild mucosal inflammation in the sigmoid segment Procedure Description: After the induction of monitored anesthetic care, and with Bandar in left lateral decubitus position, I began by performing an external anorectal exam.? Perineum and skin were normal, as was the anal verge.? There was no evidence of external hemorrhoids.? Next, I performed a digital rectal exam.? I did not appreciate any abnormal findings.? Next, I advanced a colonoscope into the rectal vault.? I performed retroflexion.? This appeared normal. Using irrigation, I then advanced the colonoscope beyond the rectal folds and into the sigmoid colon before advancing towards the cecum.? There is pandiverticulosis. the scope was noted to be in the cecum by identification of the ileocecal valve and appendiceal orifice.? I then began withdrawing the colonoscope using repeated irrigation as necessary for full evaluation of the colonic mucosa. ?Careful attention was paid around 50 cm from the anal verge where his previous large polyp had been resected. I did not see any signs of any recurrence or any other pathology in this area. I took several passes between 40 and 70 cm to carefully reexamine this area. Again, I did not appreciate any evidence of polyps in this location. There was some evidence of mild mucosal inflammation within the sigmoid segment, between different diverticula. Once the scope was withdrawn to the level of the rectum, great care was taken to examine portions of the rectal folds.? Finally, the scope was withdrawn and the patient was brought to the same-day surgery recovery unit as the anesthetic wore off. ?The findings and instructions were shared with the patient prior to discharge. [place] Bowel Prep [place] Bowel Prep Right Colon: 2 Left Colon: 3 Transverse Colon: 3 Total Score: 8
[2025-04-25 07:24] VITALS: BP 137/72; PULSE 67; RESP 16; TEMP 36.4; O2SAT 93
[2025-04-25] MEDS: Lactated Ringers 1,000 ML 80 ML IV (07:44)
--- NOTE | 2025-04-25 08:17 | ANES.PREOP_ITS ---
General Info Date of Service Date Performed: 04/25/25 Height: 5 ft 9 in Weight: 99.1 kg Body Mass Index (BMI): 32.2 Surgical Procedure: Operation Date: 04/25/25 08:20 Proposed Procedure Side Surgeon p Colonoscopy Jamey Loo MD Actual Procedure Side Surgeon p Colonoscopy Not Applicable Jamey Loo MD Pre-Op Diagnosis Post-Op Diagnosis Screening colonoscopy Meds Allergies and Home Medications Allergies Allergy/AdvReac Type Severity Reaction Status Date / Time No Known Allergies Allergy Verified 04/25/25 07:19 Home Medication ?Medication ?Instructions ?Recorded HYDROcodone/APAP 5/325, 4 tab 1 tab PO BID-QID PRN pain #4 tabs 10/17/19 [[place] 5/325, 4 tabs/btl] Lactobacillus acidophilus and 15 cap PO BID 10/17/19 rhamnosus 15 billion cell capsule (Probiotic) chlorthalidone 25 mg tablet 25 mg PO DAILY 10/17/19 lisinopril 5 mg tablet 5 mg PO DAILY 02/05/24 sertraline 50 mg tablet 50 mg PO DAILY 02/05/24 sildenafil 100 mg tablet (Viagra) 100 mg PO DAILY PRN 02/05/24 simvastatin 10 mg tablet 20 mg PO HS 02/05/24 tamsulosin 0.4 mg capsule 0.4 mg PO DAILY 02/05/24 Current Visit Medications: Current Medications Generic Name Dose Route Start Last Admin Trade Name Freq PRN Reason Stop Dose Admin Ringer's Solution 1,000 mls @ 80 mls/hr 04/25/25 06:00 04/25/25 07:44 IV 04/25/25 23:59 80 mls/hr INFUSION PAULINA Administration IV Miscellaneous Supplies 1 each 04/25/25 06:00 Iv Access IV 04/25/25 23:59 DIRECTED PAULINA Ondansetron HCl 4 mg 04/24/25 16:11 Ondansetron 4 Mg/2 Ml Vial IVP 05/24/25 16:10 Q4H PRN PRN Nausea / Vomiting Sodium Chloride 0 ml 04/25/25 06:00 Normal Saline Flush 10 Ml Syr IV 04/25/25 23:59 PRN PRN Sodium Chloride 0 ml 04/25/25 06:00 Normal Saline 10 Ml Vial IJ 04/25/25 23:59 DIRECTED PRN Sterile Water 0 ml 04/25/25 06:00 Water,Injection,Sterile 10 Ml Vial IJ 04/25/25 23:59 DIRECTED PRN PFS Active Problems Active Problems: Problem Status Onset Code Encounter for screening colonoscopy Acute Z12.11 Villous adenoma of colon Acute D37.4 Pancolonic diverticulosis Acute K57.30 Hypercholesterolemia Chronic E78.00 GERD (gastroesophageal reflux disease) Chronic K21.9 Medical History Medical History Obesity Erectile dysfunction Osteoarthritis Benign prostatic hyperplasia Irritable bowel syndrome Chronic depression Hyperlipidemia Essential hypertension 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, partial nephrectomy Surgical History Surgical History History of colonoscopy (~03/2024) H/O lithotripsy stone removal, ureteral stent 02/03/23 History of ureteroscopy Hx of cystoscopy cystoscopy, ureteroscopy, stone extraction and stent placement right kidney 01/18/2023 H/O partial nephrectomy uncomplicated robotic-assisted laparoscopic right partial nephrectomy for a 7 cm lower pole renal mass H/O hernia repair bilateral hernia repair age 6 Tonsillectomy Repair of umbilical hernia Repair of inguinal hernia Tobacco Smoking/Tobacco Use Status: Never Passive smoking exposure: No Alcohol Alcohol Intake: current Alcohol intake frequency: a few times a week Substance Use Substance use: Never Substance use type: does not use Vital Signs and Lab Results Vital Signs Most Recent Vital Signs in EMR: Most Recent Vital Signs Temp Pulse Resp BP Pulse Ox 36.4 C L 67 16 137/72 93 04/25/25 07:24 04/25/25 07:24 04/25/25 07:24 04/25/25 07:24 04/25/25 07:24 Lab Results Blood Type / Crossmatch: No Data to Display Complete Blood Count: No Data to Display Complete Metabolic Panel: No Data to Display Liver Function Panel: No Data to Display Coagulation Panel: No Data to Display Cardiac Panel: No Data to Display Arterial Blood Gas: No Data to Display Venous Blood Gas: No Data to Display Pancreas Panel: No Data to Display Thyroid Panel: No Data to Display Infectious Disease: No Data to Display Blood Cultures: No Data to Display Toxicology Panel: No Data to Display Anesthesia Assessment and Plan Anesthesia History Personal History: No History of Anesthesia Complications Family History: No Family History of Anesthesia Complications Exercise Tolerance Exercise Tolerance: Metabolic Equivalents>4 Pertinent Negatives Pertinent Negatives: No Symptoms of GERD Cardiac & Pulmonary Exam Cardiac Exam: Normal S1/S2 Heart Sounds Pulmonary Exam: Clear Bilateral Breath Sounds Implantable Cardiac Device Does patient have a Pacemaker or an ICD?: No Airway Exam Known Difficult Airway: No Mallampati Class: 2 Mouth Opening: Normal (> 3cm) Thyromental Distance: Greater than 3 cm Neck Range of Motion: Full ROM Neck Circumference: Normal Teeth Condition: Normal Dentition and Removable Dentures/Plates Upper (upper partial) ASA Classification ASA Score: ASA 2 Emergency Case?: No NPO Status NPO Status: NPO Clears >2 hours, Solids >8 hours Anesthesia Plan Resuscitation Status: Full Code Anesthesia Technique: General Anesthesia Airway Planned: Natural Airway Monitors Used: Standard Monitors
[2025-04-25 08:19] VITALS: BMI 32.2
[2025-04-25 08:48] VITALS: BP 104/62; PULSE 65; RESP 16; TEMP 36.6; O2SAT 93
--- NOTE | 2025-04-25 08:56 | W.ANESPOSTOP ---
Postoperative Evaluation Date, Time and Location Date Performed: 04/25/25 Time Performed: 08:57 Patient Location: Day Surgery Unit Vital Signs Most Recent Imported Vital Signs: Most Recent Vital Signs Temp Pulse Resp BP Pulse Ox 36.6 C 65 16 104/62 93 04/25/25 08:48 04/25/25 08:48 04/25/25 08:48 04/25/25 08:48 04/25/25 08:48 Pain Score Most Recent Pain Score: Most Recent Pain Score Pain Level 0 04/25/25 08:48 Assessment Mental Status: Awake (Alert & Oriented to Patient Baseline) Airway and Respiratory Function: Patent airway with normal (patient baseline) respiratory exam Cardiovascular Function: Hemodynamically Stable Hydration Status: Adequately Hydrated Nausea & Vomiting: No Nausea or Vomiting Pain: Pt. Denies Any Pain Peripheral Nerve Block: Patient did not receive a nerve block
[2025-04-25 09:22] VITALS: BP 138/74; PULSE 63; RESP 16; TEMP 36.4; O2SAT 94
== END 2025-04-25 09:40 | disposition home or self-care (01) ==
LOC: SUR 06:54
PROVIDERS: PCP Family Medicine; Visit Provider Surgery
PROC: 0DJD8ZZ Inspection of Lower Intestinal Tract, Via Natural or Artificial Opening Endoscopic (ICD-10-PCS; CPT 45378; principal; 2025-04-25 08:15)
DX: Z12.11 Encounter for screening for malignant neoplasm of colon (principal); K57.50 Diverticulosis of both small and large intestine without perforation or abscess without bleeding; Z86.0100 Personal history of colon polyps, unspecified
CPT/HCPCS: 45378; J2003; J2704

== ENCOUNTER 2025-10-11 11:27 | Emergency (ER) | payer OTHER, MEDICARE, SELFPAY ==
[2025-10-11 11:30] VITALS: BP 136/68; PULSE 69; RESP 16; TEMP 36.7; O2SAT 93
--- NOTE | 2025-10-11 11:30 | DI.RAD_ITS ---
Exam(s) XR WRIST RT COMPLETE EXAM: XR WRIST RT COMPLETE CLINICAL HISTORY: pain s/p fall. TECHNIQUE: 2D digital imaging was performed. COMPARISON: No exams were available for comparison FINDINGS: 3 views There is a nondisplaced acute fracture at level waist of the scaphoid-navicular bone. No evidence of avascular necrosis. Scapholunate distance is normal. Lunate unremarkable. No significant ulnar variance. There are mild degenerative changes in the 1st carpometacarpal joint. IMPRESSION: Nondisplaced acute fracture of the level the waist of the scaphoid-navicular. DATA REPOSITORY: RADIATION DOSE DELIVERED:
--- NOTE | 2025-10-11 11:39 | W.ED.GENAD ---
Discharge Plan Disposition Patient Disposition: Home Condition: Stable Discharge Details Clinical Impression: Closed fracture of scaphoid of right wrist Primary Care Provider: Ronak Anderson ED Provider: Rafael Palm Home Meds and New Rx's Prescriptions: Continued lisinopril 5 mg tablet 5 mg PO DAILY sertraline 50 mg tablet 50 mg PO DAILY simvastatin 10 mg tablet 20 mg PO HS tamsulosin 0.4 mg capsule 0.4 mg PO DAILY Probiotic 15 billion cell Capsule 15 cap PO BID Discontinued sildenafil [Viagra] 100 mg tablet 100 mg PO DAILY PRN Rx Instructions: 0.5 -1 tablet by mouth as needed administer 30 minutes to 4 hours before activity Discharge Instructions Additional Instructions: You have a nondisplaced scaphoid fracture. Wear the splint until you follow-up with orthopedics. If you call their office on Monday they will tell you and they will follow-up with you. If you feel significantly more ill or have severe worsening pain return to the emergency department for reevaluation. Stand Alone Forms: Portal Information Referrals: Humberto Gore MD [ [facility] STAFF PHYSICIAN, Orthopaedic Surgical] [facility] General Mode of arrival: ambulatory. Date/Time Provider Initiated Documentation: 10/11/25 11:33. Limitations to Documentation: no limitations. Information obtained by: patient. History of Present Illness 70 year old M presents to the emergency department with the chief complaint of right hand/wrist pain s/p fall, described as moderate, Quality is described as aching, and is localized to the right and upper extremity. Patient reports no radiation. Patient started experiencing this hour(s) (1) and it has been constant. Rest improves symptom(s), Movement worsens symptoms . Patient notes no other symptoms.. Patient did receive the following treatments prior to arrival, none Related Data Home Medications Medication Instructions Recorded Confirmed Lactobacillus acidophilus and 15 cap PO BID 10/17/19 10/11/25 rhamnosus 15 billion cell capsule (Probiotic) lisinopril 5 mg tablet 5 mg PO DAILY 02/05/24 10/11/25 sertraline 50 mg tablet 50 mg PO DAILY 02/05/24 10/11/25 simvastatin 10 mg tablet 20 mg PO HS 02/05/24 10/11/25 tamsulosin 0.4 mg capsule 0.4 mg PO DAILY 02/05/24 10/11/25 Allergies Allergy/AdvReac Type Severity Reaction Status Date / Time No Known Allergies Allergy Verified 10/11/25 11:31 General Stated Complaint: Orthopedic LORRIE: 4 Review of Systems All systems reviewed & are unremarkable except as noted in HPI and below Constitutional Constitutional: Denies chills, Denies fever(s) and Denies weakness Cardiovascular Cardiovascular: Denies chest pain and Denies dyspnea Respiratory Respiratory: Denies dyspnea Gastrointestinal Gastrointestinal: Denies abdominal pain and Denies vomiting Neurologic Neurologic: Denies weakness Exam Const General: no acute distress Orientation: alert [facility] Head: normal to inspection Ears: external ears normal General nose exam: external nose normal Mouth: moist mucous membranes Eyes General: appearance normal, both eyes and all related structures Neck Neck: normal visual inspection Resp Effort & Inspection: normal respiratory effort and able to speak in complete sentences Cardio Rate: regular rate Skin General skin exam: no rashes or lesions noted Neuro General: patient alert and patient oriented x3 Extrem General: full ROM Psych Mental Status: mental status grossly normal Course Vital Signs Vital signs: Vital Signs Temperature 36.7 C 10/11/25 11:30 Pulse 69 10/11/25 11:30 Respiratory Rate 16 10/11/25 11:30 Blood Pressure 136/68 10/11/25 11:30 Pulse Oximetry 93 10/11/25 11:30 Temperature 36.7 C 10/11/25 11:30 Temperature Source Oral 10/11/25 11:30 Pulse 69 10/11/25 11:30 Respiratory Rate 16 10/11/25 11:30 Blood Pressure 136/68 10/11/25 11:30 Pulse Oximetry 93 10/11/25 11:30 Oxygen Delivery Method Room Air 10/11/25 11:30 Oxygen Flow Rate 0 10/11/25 11:30 Pain Level 7 10/11/25 11:30 Medical Decision Making 70-year-old male with a history of hypertension and hyperlipidemia comes in with right hand and wrist pain after he fell. He says he was moving tires out of his pickup truck and had a stepstool that he thought he was going to step on but missed it and fell landing on his right wrist. He denies hitting his head or having loss of consciousness. He denies any headache, neck pain, back pain, chest or abdomen pain. He localizes the pain to the right wrist and hand laterally. He has no visible or palpable deformities. He does have full range of motion of his fingers and his wrist though with pain. Intact sensation and cap refill and also 2+ radial and ulnar pulses. I suspect wrist sprain versus contusion, will obtain x-rays to evaluate for possible fracture. Patient's x-rays show a nondisplaced scaphoid fracture. Patient is stable, will provide a thumb spica splint and referred to orthopedics, return precautions given. 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, partial nephrectomy Surgical History (Updated 04/28/25 @ 08:41 by Leah Wilkes) History of colonoscopy (~03/2025) H/O lithotripsy stone removal, ureteral stent 02/03/23 History of ureteroscopy Hx of cystoscopy cystoscopy, ureteroscopy, stone extraction and stent placement right kidney 01/18/2023 H/O partial nephrectomy uncomplicated robotic-assisted laparoscopic right partial nephrectomy for a 7 cm lower pole renal mass H/O hernia repair bilateral hernia repair age 6 Tonsillectomy Repair of umbilical hernia Repair of inguinal hernia Social History (Updated 03/20/24 @ 07:20 by KYLAH Loya) Smoking/Tobacco Use Status: Never Smoking risk assessment performed?: Yes Alcohol Intake: current Alcohol Intake frequency: a few times a month Drug use: Never Substance use type: does not use Housing: house Do you feel safe at home: Yes Do you feel safe in your relationship?: Yes PAWSS Have you Been Recently Intoxicated or Drunk Within the Last 30 days?: No Have you Ever Experienced Previous Episodes of Alcohol Withdrawal?: No Have you ever Experienced Withdrawal Seizures?: No Have you ever Experienced Delirium Tremens(DT)s?: No Have you ever undergone Alcohol Rehabilitation Treatment (i.e, inpt ot outpatient treatment programs)?: No Have you ever Experienced Blackouts?: No Have you ever Combined Alcohol with other Downers within the last 90 days?: No Have you ever Combined Alcohol with any other Substance of Abuse during the last 90 days?: No Result: 0
--- NOTE | 2025-10-11 11:52 | DI.RAD_ITS ---
Exam(s) XR HAND RT COMPLETE EXAM: XR HAND RT COMPLETE CLINICAL HISTORY: pain s/p fall. TECHNIQUE: 2D digital imaging was performed. COMPARISON: CR LEFT HAND COMPLETE from 06/20/2016 FINDINGS: 3 views There is an acute nondisplaced fracture of the level waist of the scaphoid- navicular bone appear. No widening of the interosseous space between the scaphoid and lunate bones. Other carpal row bones appear unremarkable. Some degenerative changes are noted at the 1st carpometacarpal joint. There is also a fixation wire in the lateral aspect of the proximal 3rd of the thumb metacarpal bone. Bone density normal. No osseous lesions. IMPRESSION: Nondisplaced acute appearing fracture at the waist of the scaphoid-navicular bone. DATA REPOSITORY: RADIATION DOSE DELIVERED:
[2025-10-11] MEDS: Acetaminophen 500 MG TAB 1000 MG PO (12:41)
--- NOTE | 2025-10-11 12:44 | DI.VRAD_ITS ---
PROCEDURE INFORMATION: Exam: XR Right Hand Exam date and time: 10/11/2025 11:46 AM Age: 70 years old Clinical indication: Hand and wrist; Right; Tire fellon hand/wrist. Pain radial side TECHNIQUE: Imaging protocol: Radiologic exam of the right hand. Views: 3 or more views. COMPARISON: No relevant prior studies available. Wrist films dictated separately. FINDINGS: Bones/joints: Bony mineralization is within normal limits. Degenerative changes are seen at the basal joint of the thumb, STT joint and in the interphalangeal joints. Better seen on wrist films, there is a nondisplaced scaphoid fracture. No other acute fracture or dislocation identified.. Cerclage wire is noted adjacent to the proximal 1st metacarpal. Soft tissues: Mild soft tissue swelling of the wrist. IMPRESSION: 1. Nondisplaced scaphoid fracture. 2. DJD Dictated and Authenticated by: Ivis Dunlap MD. Orderin Arpita Hall MD
--- NOTE | 2025-10-11 12:45 | DI.VRAD_ITS ---
PROCEDURE INFORMATION: Exam: XR Right Wrist Exam date and time: 10/11/2025 11:49 AM Age: 70 years old Clinical indication: Right; Pain tire fell on wrist/hand. Pain radial side of wrist TECHNIQUE: Imaging protocol: Radiologic exam of the right wrist. Views: 3 or more views. COMPARISON: CR XR HAND RT COMPLETE 10/11/2025 11:46 AM FINDINGS: Bones/joints: Bony mineralization is within normal limits. There is a nondisplaced scaphoid fracture. No other acute fracture identified. Degenerative changes are seen at the basal joint of the thumb and the STT joint. Cerclage wire is noted adjacent to the proximal 1st metacarpal. Soft tissues: There is mild soft tissue swelling IMPRESSION: Nondisplaced scaphoid fracture. Dictated and Authenticated by: Ivis Dunlap MD. Orderin Arpita Hall MD
[2025-10-11 13:25] VITALS: BP 118/61; PULSE 55; RESP 16; O2SAT 98
== END 2025-10-11 13:28 | disposition home or self-care (01) ==
PROVIDERS: Emergency Provider Emergency Medicine; PCP Family Medicine
DX: W19.XXXA Unspecified fall, initial encounter; S62.014A Nondisplaced fracture of distal pole of navicular [scaphoid] bone of right wrist, initial encounter for closed fracture
CPT/HCPCS: 99283; 99284; 73110; 73130

== ENCOUNTER 2025-10-21 11:12 | Outpatient (CLI) | payer OTHER, MEDICARE, SELFPAY ==
--- NOTE | 2025-10-21 09:46 | DI.RAD_ITS ---
Exam(s) XR WRIST RT COMPLETE EXAM: XR WRIST RT COMPLETE CLINICAL HISTORY: F/U FRACTURE. TECHNIQUE: 2D digital imaging was performed of the right wrist. Three views were obtained. Scaphoid, PA and lateral views were obtained. COMPARISON: CR,XR XR WRIST RT COMPLETE from 10/11/2025 FINDINGS: BONES: There is no change in alignment of the fracture through the waist of the scaphoid. The fracture line is still visualized at its radial side. No new fracture is seen. No bony destructive lesion is seen. JOINTS: The carpal bones are normally aligned. SOFT TISSUE: Normal. IMPRESSION: Stable alignment of the scaphoid fracture. DATA REPOSITORY: RADIATION DOSE DELIVERED:
== END 2025-10-21 11:13 | disposition home or self-care (01) ==
LOC: DIORS 11:12
PROVIDERS: PCP Family Medicine; Visit Provider Student in an Organized Health Care Education/Training Program
DX: S62.001D Unspecified fracture of navicular [scaphoid] bone of right wrist, subsequent encounter for fracture with routine healing (principal); X58.XXXD Exposure to other specified factors, subsequent encounter
CPT/HCPCS: 73110

== ENCOUNTER 2025-11-11 11:29 | Outpatient (CLI) | payer OTHER, MEDICARE, SELFPAY ==
--- NOTE | 2025-11-11 11:00 | DI.RAD_ITS ---
Exam(s) XR WRIST RT COMPL NAVICULAR EXAM: XR WRIST RT COMPL NAVICULAR CLINICAL HISTORY: F/U FRACTURE. TECHNIQUE: 2D digital imaging was performed of the right wrist. Four views were obtained. Scaphoid, PA, lateral and oblique views were obtained. COMPARISON: CR,XR XR WRIST RT COMPLETE from 10/11/2025 CR XR WRIST RT COMPLETE from 10/21/2025 FINDINGS: BONES: There has been no change in alignment of the nondisplaced scaphoid fracture. Portions of the fracture line are still visualized. There are postsurgical changes seen at the 1st CMC joint. No bony destructive lesion is seen. JOINTS: The carpal bones are normally aligned. SOFT TISSUE: Normal. IMPRESSION: Stable alignment of the scaphoid fracture. DATA REPOSITORY: RADIATION DOSE DELIVERED:
== END 2025-11-11 11:30 | disposition home or self-care (01) ==
LOC: DIORS 11:30
PROVIDERS: PCP Family Medicine; Visit Provider Student in an Organized Health Care Education/Training Program
DX: S62.001A Unspecified fracture of navicular [scaphoid] bone of right wrist, initial encounter for closed fracture (principal)
CPT/HCPCS: 73110